=== PATIENT | male | born 1950 | race Caucasian/White ===

== ENCOUNTER 2018-10-09 22:23 | Emergency (ER) | payer OTHER ==
--- NOTE | 2018-10-10 00:18 | EDM.PDOC ---
ED HPI GENERAL MEDICAL PROBLEM - General Chief Complaint: General Stated Complaint: BLEEDING FROM PIMPLE Time Seen by Provider: 10/09/18 23:15 Source of Information: Reports: Patient History Limitations: Reports: No Limitations - History of Present Illness INITIAL COMMENTS - FREE TEXT/NARRATIVE: Patient presents with complaints of uncontrolled bleeding on the upper part of his lip from a pimple that popped. He has no other complaints. He does take coumadin. Onset: Today, Sudden Duration: Getting Worse Location: Reports: Face Severity: Moderate Improves with: Reports: None Worsens with: Reports: None Associated Symptoms: Reports: No Other Symptoms - Related Data Allergies Allergy/AdvReac Type Severity Reaction Status Date / Time Penicillins Allergy Rash Verified 10/09/18 23:43 Home Meds: Home Meds Warfarin [Coumadin] 2 mg PO DAILY 10/09/18 [History] Past Medical History Cardiovascular History: Reports: Hypertension Respiratory History: Reports: COPD Neurological History: Reports: CVA Endocrine/Metabolic History: Reports: Diabetes, Type II - Past Surgical History Musculoskeletal Surgical History: Reports: Knee Replacement Social & Family History - Tobacco Use Smoking Status *Q: Current Every Day Smoker Years of Tobacco use: 55 Packs/Tins Daily: 1.5 ED ROS GENERAL - Review of Systems Review Of Systems: See Below Constitutional: Reports: No Symptoms HEENT: Reports: No Symptoms Respiratory: Reports: No Symptoms Cardiovascular: Reports: No Symptoms Endocrine: Reports: No Symptoms GI/Abdominal: Reports: No Symptoms : Reports: No Symptoms Musculoskeletal: Reports: No Symptoms Skin: Reports: Wound Neurological: Reports: No Symptoms Psychiatric: Reports: No Symptoms Hematologic/Lymphatic: Reports: No Symptoms Immunologic: Reports: No Symptoms ED EXAM, GENERAL - Physical Exam Exam: See Below Exam Limited By: No Limitations General Appearance: Alert, WD/WN, No Apparent Distress Head: Atraumatic, Normocephalic Skin Exam: Wound/Incision (small pimple on left upper lip. active bleeding) Lymphatic: No Adenopathy Course - Vital Signs Last Recorded V/S: Last Vital Signs Temp 36.6 C 10/09/18 23:40 Pulse 95 10/09/18 23:40 Resp 18 10/09/18 23:40 BP 131/70 10/09/18 23:40 Pulse Ox 95 10/09/18 23:40 - Orders/Labs/Meds Labs: Laboratory Tests 10/09/18 Range/Units 23:30 PT 40.2 H (10.0-12.8) SEC INR 3.6 H (2.0-3.5) - Re-Assessments/Exams Free Text/Narrative Re-Assessment/Exam: 10/10/18 00:25 surgicel applied and bleeding has stopped Departure - Departure Time of Disposition: 00:26 Disposition: Home, Self-Care 01 Condition: Good Clinical Impression: Elevated INR - Discharge Information *PRESCRIPTION DRUG MONITORING PROGRAM REVIEWED*: Not Applicable *COPY OF PRESCRIPTION DRUG MONITORING REPORT IN PATIENT KAY: Not Applicable Instructions: Warfarin Coagulopathy Additional Instructions: Plan 1. Hold coumadin tomorrow 2. Follow up with your primary doctor and schedule a follow up INR test as your INR is elevated, which caused your bleeding tonight. 3. Please call us if you have any questions or additional concerns. - Problem List & Annotations (1) Elevated INR SNOMED Code(s): 583568745 Code(s): R79.1 - ABNORMAL COAGULATION PROFILE Status: Acute Priority: Medium Current Visit: Yes - Problem List Review Problem List Initiated/Reviewed/Updated: Yes - Assessment/Plan Last 24 Hours: elevated INR Assessment:: Plan 1. Hold coumadin tomorrow 2. Follow up with your primary doctor and schedule a follow up INR test as your INR is elevated, which caused your bleeding tonight. 3. Please call us if you have any questions or additional concerns.
== END 2018-10-10 00:22 | disposition home or self-care (01) ==
LOC: VM.ED 22:23
DX: R79.1 Abnormal coagulation profile (principal); E11.9 Type 2 diabetes mellitus without complications; F17.210 Nicotine dependence, cigarettes, uncomplicated; I10 Essential (primary) hypertension; Z86.73 Personal history of transient ischemic attack (TIA), and cerebral infarction without residual deficits; Z79.01 Long term (current) use of anticoagulants; Z88.0 Allergy status to penicillin
CPT/HCPCS: 36415; 85610; 99283; 99283-GF

== ENCOUNTER 2025-02-15 11:02 | Emergency (ER) | payer OTHER, MEDICARE ==
[2025-02-15] MEDS ORDERED: Sodium Chloride 0.9% 10 ML Syringe FLUSH PRN (11:12)
[2025-02-15] MEDS ORDERED: Naloxone 0.4 MG/ML SDV IVPUSH PRN (11:19)
[2025-02-15 11:31] LABS: PLATELET COUNT,PLT 207 x10^3/uL (130-400); RED BLOOD CELL COUNT 2.81 x10^6/uL (4.5-6.0)
[2025-02-15 11:34] LABS: WHITE BLOOD CELL COUNT,WBC 21.8 x10^3/uL (4.0-10.0)
[2025-02-15] MEDS: Lactated Ringers 1,000 ML IV ONE ×2 (11:43→13:20)
[2025-02-15 11:49] LABS: INR 0.9 (0.9-1.1)
[2025-02-15 11:57] LABS: LACTIC ACID 1.7 mmol/L (0.4-2.0)
[2025-02-15 11:58] LABS: BAND PERCENT MAN 8 % (0-6); LYMPHOCYTES ABSOLUTE MAN 0.7 x10^3/uL (1.0-4.8); LYMPHOCYTES PERCENT MAN 3 % (25-50); MONOCYTES ABSOLUTE MAN 2.4 x10^3/uL (0.0-0.8); MONOCYTES PERCENT MAN 11 % (2-11); NEUTROPHILS ABSOLUTE MAN 18.7 x10^3/uL (1.8-7.7); SEG NEUTROPHILS PERCENT MAN 78 % (50-80)
[2025-02-15 11:59] LABS: PLATELET COUNT ESTIMATE ADEQUATE
[2025-02-15 12:01] LABS: A/G RATIO 0.35; ALANINE AMINOTRANSFERASE,ALT 15 U/L (16-63); ASPARTATE AMNIOTRANSFERASE,AST 23 U/L (15-37); BILIRUBIN TOTAL 0.3 mg/dL (0.2-1.0); CARBON DIOXIDE,CO2 19 mmol/L (21-32); CHLORIDE,CL 99 mmol/L (98-107); GLUCOSE RANDOM 348 mg/dL (70-99); POTASSIUM,K 5.6 mmol/L (3.5-5.1); PRO B-TYPE NATRIUR PEPT,BNPPRO 1996 pg/mL (<=125); PROTEIN TOTAL,TP 7.3 g/dL (6.4-8.2); SODIUM,NA 135 mmol/L (136-145)
[2025-02-15 12:02] LABS: BLOOD UREA NITROGEN,BUN 121 mg/dL (7-18); CREATININE 7.8 mg/dL (0.70-1.30); ESTIMATED GFR 7 mL/min (>=60)
[2025-02-15 12:56] LABS: APPEARANCE,URINE CLOUDY (CLEAR); GLUCOSE,URINE 100 mg/dL (NEGATIVE); OCCULT BLOOD,URINE TRACE-LYSED (NEGATIVE)
[2025-02-15 13:03] LABS: SQUAMOUS EPITHELIAL CELLS,UR NOT SEEN /HPF (NOT SEEN)
[2025-02-15] MEDS: Insulin Regular, Human 100 Units/ML 10 ML Vial IV ONE (13:24)
[2025-02-15] MEDS: 50% Dextrose in Water 50 ML Syringe IVPUSH PRN (13:25)
[2025-02-15 13:49] LABS: HCO3 VENOUS,POC 13 mmol/L (22-29); O2 SATURATION VENOUS,POC 89 %; PCO2 VENOUS,POC 28 mmHg (41-51); PO2 VENOUS,POC 64 mmHg
[2025-02-15 13:50] LABS: PH VENOUS,POC 7.27 pH (7.32-7.43)
== END 2025-02-15 14:55 ==
LOC: VM.ED 11:02
DX: L08.9 Local infection of the skin and subcutaneous tissue, unspecified (principal); N17.9 Acute kidney failure, unspecified; S31.829A Unspecified open wound of left buttock, initial encounter; S31.819A Unspecified open wound of right buttock, initial encounter; E11.10 Type 2 diabetes mellitus with ketoacidosis without coma; D72.829 Elevated white blood cell count, unspecified; I10 Essential (primary) hypertension; E11.9 Type 2 diabetes mellitus without complications; J44.9 Chronic obstructive pulmonary disease, unspecified; Z86.73 Personal history of transient ischemic attack (TIA), and cerebral infarction without residual deficits; Z88.0 Allergy status to penicillin; Z79.01 Long term (current) use of anticoagulants; X58.XXXA Exposure to other specified factors, initial encounter
CPT/HCPCS: 36415; 51702; 80053; 81001; 82803; 83605; 83735; 83880; 85025; 85610; 87040; 87428; 93005; 96361; 96365; 96375; 99285; A9270; J0692; J2270; J3373; J7050; J7120; 71045